=== PATIENT | female | born 2000 | race Caucasian/White ===

== ENCOUNTER → 2021-10-26 | Emergency (ER) | payer MEDICAID ==
[~2021-10-26] VITALS: Ht 160 cm; Wt 54.4 kg
[~2021-10-26] MED LIST: IBUP-1969 PO; KETOROLAC TROMETHAMINE 30 MG VIAL IM ONE; LIDO1ADH22 TP; LIDOCAINE PATCH 5% 1 EA TP ONE; METH-634 PO; methocarbamoL 500 MG TABLET PO ONE
--- NOTE | 2021-10-26 17:30 | NUR ---
PT PLACED IN BED 4.
[2021-10-26 17:47] VITALS: BP_SYST 119
[2021-10-26 17:54] LABS: BILIRUBIN,URINE NEGATIVE (NEGATIVE); BLOOD, URINE 2+ (NEGATIVE); CLARITY/URINE CLEAR (CLEAR); COLOR,URINE YELLOW (YELLOW); GLUCOSE,URINE NEGATIVE (NEGATIVE); KETONES,URINE NEGATIVE (NEGATIVE); LEUKOCYTE ESTERASE ,URINE NEGATIVE (NEGATIVE); NITRITE, URINE NEGATIVE (NEGATIVE); PH,URINE 5.5 (5.0-8.0); PROTEIN URINE NEGATIVE (NEGATIVE); UROBILINOGEN,URINE 0.2 (0.2-1.0)
--- NOTE | 2021-10-26 17:56 | NUR ---
MD WEBB AT BEDSIDE ASSESSING PT.
[2021-10-26 18:11] LABS: BACTERIA,URINE FEW /HPF (None Seen); RBC,URINE 0-3 /HPF (0-3); WBC,URINE 0-3 /HPF (0-3)
[2021-10-26 18:12] LABS: MUCUS,URINE 2+ /LPF (None Seen)
--- NOTE | 2021-10-26 18:21 | NUR ---
In ER bed 4. C/O Lower back pain. Urine sent. MD has seen Medicated as ordered.
[2021-10-26 18:33] LABS: HCG,QUAL RESULT NEGATIVE (NEGATIVE)
[2021-10-26 19:31] VITALS: BP_SYST 114
--- NOTE | 2021-10-26 19:34 | NUR ---
Stable. VSS. Denies pain. MD has reassessed and Dc'd home. To exit with family.
== END | disposition home or self-care (01) ==
LOC: SED 16:27 → EDBD 16:27 → EDSEX 16:27
DX: S39.012A Strain of muscle, fascia and tendon of lower back, initial encounter (principal); X50.0XXA Overexertion from strenuous movement or load, initial encounter; Y93.89 Activity, other specified; Y92.89 Other specified places as the place of occurrence of the external cause; Y99.8 Other external cause status
CPT/HCPCS: 81000; 81025; 84703; 96372; 99283; J1885